=== PATIENT | female | born 1990 | race Caucasian/White ===

== ENCOUNTER 2021-11-18 21:22 | Emergency (ER) | payer MEDICAID ==
[~2021-11-18] VITALS: Ht 167.6 cm; Wt 102.3 kg
[2021-11-18] MEDS ORDERED: BACTRIM DS 8001 TAB PO (22:19)
[2021-11-18] MEDS ORDERED: ZOVIRAX800 MG PO (22:19)
[2021-11-18 22:27] VITALS: BP 112/66; PULSE 68; TEMP 98.7
== END 2021-11-18 22:27 | disposition home or self-care (01) ==
LOC: COL.ER 21:22
DX: L73.8 Other specified follicular disorders (principal); Z86.14 Personal history of Methicillin resistant Staphylococcus aureus infection; Z86.19 Personal history of other infectious and parasitic diseases; Z28.310 Unvaccinated for COVID-19

== ENCOUNTER → 2022-07-23 | Outpatient (CLI) | payer MEDICAID ==
[~2022-07-23] MED LIST: BACTRIM DS 8001 TAB PO; ZOVIRAX800 MG PO
== END ==
LOC: DIA.ED 07-21 07:05
DX: O24.419 Gestational diabetes mellitus in pregnancy, unspecified control (principal)
CPT/HCPCS: G0108

== ENCOUNTER 2022-09-19 06:10 | Inpatient (IN) | payer MEDICAID ==
[~2022-09-19] VITALS: Ht 167.6 cm; Wt 114.1 kg
[2022-09-19] VITALS (22 sets, daily range): BP systolic 106–188; BP diastolic 64–85; PULSE 65–88; TEMP 98–98.4
[2022-09-19 08:29] LABS: BASO # 0.1 K/mm3 (0.0-0.2); BASO % 0.6 % (0.0-2.0); EOS # 0.2 K/mm3 (0.0-0.7); EOS % 2.3 % (0.0-4.0); GRAN # 7.1 K/mm3 (1.4-6.5); GRAN % 70.3 % (42.2-75.2); HEMATOCRIT 37.7 % (37.0-47.0); HEMOGLOBIN 12.8 g/dl (12.5-16.0); LYMPH # 1.9 K/mm3 (1.2-3.4); LYMPH % 18.8 % (20.0-51.0); MEAN CELL VOLUME 87 fl (80.0-100.0); MEAN CORPUSCULAR HEMOGLOBIN 29 pg (27-31); MEAN CORPUSCULAR HGB CONC 34 g/dl (33.0-37.0); MONO # 0.8 K/mm3 (0.1-0.6); MONO % 7.8 % (1.7-9.3); PLATELET COUNT 226 K/mm3 (130-400); RED BLOOD COUNT 4.35 M/mm3 (4.10-5.30); REDCELL DISTRIBUTION WIDTH-CV 12.5 % (11.5-14.5)
[2022-09-19 08:38] LABS: ALBUMIN 2.3 gm/dL (3.5-5.0); BILIRUBIN,TOTAL 0.4 mg/dL (0.2-1.2); CALCIUM 8.1 mg/dL (8.4-10.2); CREATININE, serum 0.64 mg/dL (0.57-1.11); TOTAL PROTEIN 5.9 gm/dL (6.2-8.1)
[2022-09-19 09:28] LABS: TRICYCLIC ANTIDEPRESS URINE NEGATIVE
--- NOTE | 2022-09-19 14:29 | NUR ---
PATIENT UNHOOKED HERSELF TO GO TO THE BATHROOM AT 1418. THIS NURSE CHECKS ON PT DUE TO HER NOT BEING ON THE MONITOR. PATIENT STATES SHE FEELS LIKE BABY IS RIGHT THERE. UPON EXAMINATION BABY IS ON THE TOILET. CALL LIGHT PULLED. BROOKE CALLED AT 1422. DR COLBERT AT DESK ASKED TO COME. PATIENT WALKED BACK TO BED. PATIENT . TABLE SET UP AND NURSERY CALLED. DR COX HERE AT 1428, LIVE FEMALE DELIVERED AT 1429 WITH A NUCHAL X 2. PLACENTA DELIEVERED SPONTANEOUSLY AT 1432. RECOVERY STARTED AT 1440, ACTIVE BLEEDING NOTED AT FIRST FUNDAL. DR COX NOTIFIED AND OBSERVED. AT NEXT FUNDAL AT 1455 BLEEDING WITHIN NORMAL LIMITS AND DR COX NOTIFIED. WILL CONTINUE TO MONITOR.
[2022-09-20 04:04] VITALS: BP 97/46; PULSE 59; TEMP 98
[2022-09-20 06:08] LABS: HEMATOCRIT 30.8 % (37.0-47.0); HEMOGLOBIN 10.5 g/dl (12.5-16.0)
[2022-09-20] MEDS ORDERED: MOTRIN 800800 MG/TAB PO (08:18)
[2022-09-20 08:25] VITALS: BP 120/84; PULSE 67; TEMP 97.3
--- NOTE | 2022-09-20 09:06 | NUR ---
Awning Frame Maker receive consultation for patient baby due to history of illegal drug use (THC), and risk of presence of illegal drugs in infant. Awning Frame Maker reviewed patient chart noting UDS negative for substance, including cannabinoid. Awning Frame Maker consulted Rachana LOPEZ who states no concern for patient current use; baby screening negative for substance, including cannabinoid. Mother and baby appear to be healthy and baby is being appropriately cared for by mother. Anticipated discharge today to home. No social work concerns noted. Social Work consultation resolved.
== END 2022-09-20 17:00 | disposition home or self-care (01) | DRG 806 ==
LOC: LDR 06:10 → OB 15:51
PROVIDERS: ADMIT Obstetrics & Gynecology
PROC: 10E0XZZ Delivery of Products of Conception, External Approach (ICD-10-PCS; principal; 2022-09-19)
PROC: 3E033VJ Introduction of Other Hormone into Peripheral Vein, Percutaneous Approach (ICD-10-PCS; 2022-09-19)
DX: O24.420 Gestational diabetes mellitus in childbirth, diet controlled (principal); O98.32 Other infections with a predominantly sexual mode of transmission complicating childbirth; Z37.0 Single live birth; Z3A.39 39 weeks gestation of pregnancy; Z14.1 Cystic fibrosis carrier; A60.09 Herpesviral infection of other urogenital tract; O99.214 Obesity complicating childbirth; J45.909 Unspecified asthma, uncomplicated; O99.52 Diseases of the respiratory system complicating childbirth; O69.81X0 Labor and delivery complicated by cord around neck, without compression, not applicable or unspecified
CPT/HCPCS: J2590; J7120